=== PATIENT | female | born 1965 | race Caucasian/White ===

== ENCOUNTER 2017-06-26 01:22 | Emergency (ER) | payer OTHER ==
[~2017-06-26] VITALS: Ht 172.7 cm; Wt 95.5 kg
[2017-06-26] MEDS ORDERED: ACETAMINOPHEN/CODEINE 300-30 MG TABLET PO ONE (02:00)
[2017-06-26 02:56] VITALS: BP 141/89
== END 2017-06-26 03:27 | disposition home or self-care (01) ==
LOC: EMS 01:23
DX: S90.129A Contusion of unspecified lesser toe(s) without damage to nail, initial encounter (principal); F17.210 Nicotine dependence, cigarettes, uncomplicated; W22.8XXA Striking against or struck by other objects, initial encounter; Y93.89 Activity, other specified; Y92.89 Other specified places as the place of occurrence of the external cause; Y99.8 Other external cause status
CPT/HCPCS: 29550; 99284

== ENCOUNTER 2019-01-18 17:58 | Emergency (ER) | payer OTHER ==
[~2019-01-18] VITALS: Ht 177.8 cm; Wt 104.5 kg
[2019-01-18 18:05] VITALS: BP 134/68
[2019-01-18] MEDS ORDERED: TOBRAMYCIN/DEXAMETHASONE 5 ML OPHTHALMIC SUSPENSION OU ONE (20:45)
[2019-01-18] MEDS ORDERED: DiphenhydrAMINE HCL 25 MG CAPSULE PO ONE (20:45)
== END 2019-01-18 21:22 | disposition home or self-care (01) ==
LOC: EMS 17:59
DX: H10.13 Acute atopic conjunctivitis, bilateral (principal); R03.0 Elevated blood-pressure reading, without diagnosis of hypertension; F17.210 Nicotine dependence, cigarettes, uncomplicated

== ENCOUNTER 2020-05-17 14:51 | Emergency (ER) | payer OTHER ==
[~2020-05-17] VITALS: Ht 172.7 cm; Wt 109.1 kg
[2020-05-17] MEDS ORDERED: CRAN250C PO (14:54)
[2020-05-17] MEDS ORDERED: [UNRECOGNIZED DRUG - CODE] PEG (14:54)
[2020-05-17 15:54] LABS: BASOPHILS % (AUTO) 0.3 % (0.0-2.0); EOSINOPHILS % (AUTO) 0.6 % (1.0-6.0); HEMATOCRIT 40.1 % (36-46); HEMOGLOBIN 13.1 g/dL (12.0-16.0); LYMPHOCYTES # (AUTO) 1.3 K/uL (1.0-4.8); LYMPHOCYTES % (AUTO) 10.1 % (22.0-44.0); MEAN CORPUSCULAR HEMOGLOBIN 28.8 pg (26.0-34.0); MEAN CORPUSCULAR HGB CONC 32.8 G/dL (31.0-37.0); MEAN CORPUSCULAR VOLUME 88 fL (80-100); MONOCYTES # (AUTO) 1.1 K/uL (0.1-1.0); MONOCYTES % (AUTO) 7.9 % (2.0-9.0); NEUTROPHILS # (AUTO) 10.8 K/uL (1.8-7.7); NEUTROPHILS % (AUTO) 81.1 % (40.0-70.0); PLATELET COUNT (AUTO) 286 K/uL (150-450); RED BLOOD CELL COUNT(AUTO) 4.56 MIL/uL (4.00-5.20); RED CELL DISTRIBUTION WIDTH 14.1 % (11.5-14.5)
[2020-05-17 16:05] LABS: CALCIUM, TOTAL 8.7 mg/dL (8.8-10.5); CREATININE 1.18 mg/dL (0.60-1.30); POTASSIUM 3.4 mmol/L (3.5-5.1)
[2020-05-17 16:55] LABS: APPEARANCE,URINE CLOUDY (CLEAR); BILIRUBIN,URINE NEGATIVE (NEGATIVE); GLUCOSE, URINE (UA) NEGATIVE (NEGATIVE); KETONES,URINE TRACE mg/dL (NEGATIVE); LEUKOCYTE ESTERASE ,URINE SMALL (NEGATIVE); NITRATE,URINE NEGATIVE (NEGATIVE); OCCULT BLOOD,URINE LARGE (NEGATIVE); PROTEIN,URINE POS 1+ (NEGATIVE); UROBILINOGEN,URINE 0.2 mg/dL (<=1.0)
[2020-05-17 16:59] LABS: AMPHET/METH SCREEN,URINE POSITIVE (NEGATIVE); BARBITURATE SCREEN, URINE NEGATIVE (NEGATIVE); BENZODIAZEPINES SCREEN,URINE NEGATIVE (NEGATIVE); CANNABINOID SCREEN,URINE NEGATIVE (NEGATIVE); COCAINE SCREEN,URINE NEGATIVE (NEGATIVE); METHADONE SCREEN, URINE NEGATIVE (NEGATIVE); OPIATE SCREEN,URINE NEGATIVE (NEGATIVE)
[2020-05-17 17:02] LABS: PHENCYCLIDINE SCREEN,URINE NEGATIVE (NEGATIVE)
[2020-05-17 17:22] LABS: BACTERIA,URINE Many /HPF (None Seen); RBC,URINE >100 /HPF (0-2); SQUAMOUS EPITHELIAL CELL,UR Few /LPF (None Seen)
[2020-05-17 17:23] LABS: AMORPHOUS SEDIMENT,UR Few /LPF (None Seen)
[2020-05-17] MEDS ORDERED: LIDOCAINE/PF 1% 2 ML VIAL IM ONE (17:30)
[2020-05-17] MEDS ORDERED: CefTRIAXone SODIUM 1 GM/VIAL IM ONE (17:30)
[2020-05-17 17:50] VITALS: BP 152/97
== END 2020-05-17 18:47 | disposition home or self-care (01) ==
LOC: EMS 15:01
DX: N39.0 Urinary tract infection, site not specified (principal); R33.9 Retention of urine, unspecified; F17.210 Nicotine dependence, cigarettes, uncomplicated
CPT/HCPCS: 36415; 51701; 80048; 80307; 81001; 85025; 87086; 96372; 99283; J0696; J3490